=== PATIENT | female | born 1990 | race Caucasian/White ===

== ENCOUNTER → 2016-10-05 | Outpatient (CLI) | payer OTHER ==
[2016-10-05 08:11] LABS: Basophils % (A) 1 %; CH 28.1; Eosinophils # (A) 0.1 k/uL (0-0.7); Eosinophils % (A) 2 %; HCT 43.2 % (34.0-46.0); HDW 2.68; Luc # (Auto) 0.13; Luc % (Auto) 2; Lymphocytes # (A) 1.9 k/uL (1.0-4.8); Lymphocytes % (A) 27 %; MCH 28.8 pg (25.0-35.0); MCHC 34.8 g/dL (31.0-37.0); MCV 82.9 fL (80.0-100.0); Mean Platelet Volume 7.9; Monocytes # (A) 0.3 k/uL (0-1.0); Monocytes % (A) 5 %; Neutrophils # (A) 4.4 k/uL (1.3-7.7); Neutrophils % (A) 64 %; RBC 5.21 m/uL (3.80-5.40); RDW 12.2 % (11.5-15.5); WBC 6.9 k/uL (3.8-10.6); WBC (Perox) 7.17
== END | disposition home or self-care (01) ==
LOC: LABWHC1 07:26
PROVIDERS: ATTEND Nurse Practitioner Family
DX: R39.15 Urgency of urination (principal); R53.83 Other fatigue
CPT/HCPCS: 36415; 82947; 84439; 84443; 85025; 86376; 86800

== ENCOUNTER → 2016-12-27 | Outpatient (CLI) | payer BC ==
--- NOTE | 2016-12-27 19:05 | XR ---
EXAMINATION TYPE: XR lumbar spine 2 or 3V DATE OF EXAM: 12/27/2016 COMPARISON: NONE HISTORY: Pain TECHNIQUE: 3 views FINDINGS: Lumbar vertebra have fairly normal spacing and alignment. Posterior elements are intact. Sa croiliac joints appear normal. IMPRESSION: Negative lumbar spine exam.
== END | disposition home or self-care (01) ==
LOC: RADXRMAIN 18:20
PROVIDERS: ATTEND Surgery
DX: M54.40 Lumbago with sciatica, unspecified side (principal)
CPT/HCPCS: 72100

== ENCOUNTER 2016-12-30 17:03 | Emergency (ER) | payer BC ==
[2016-12-30] MEDS ORDERED: KETOROLAC 30 MG/ML 1 ML VIAL IVP STA (17:57)
[2016-12-30] MEDS ORDERED: KETOROLAC 30 MG/ML 1 ML VIAL IM STA (18:06)
--- NOTE | 2016-12-30 18:16 | ED ---
Back Pain HPI - General Chief Complaint: Back Pain/Injury Stated Complaint: Back Pain Time Seen by Provider: 12/30/16 17:35 Source: patient, RN notes reviewed Mode of arrival: ambulatory Limitations: no limitations - History of Present Illness Initial Comments: This is a 26-year-old female who presents to emergency department with chief complaint of low back pain. Patient states that she has had lumbar back pain since last Monday. She was cleaning the house and folding laundry when she began to have pain. She thought that at the time she pulled a muscle because she has done so multiple times in the past. 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 Patient continues to have sharp shooting pain along both sides of the spine, more so on the right than the left. Patient denies any urinary symptoms including dysuria, frequency, or hematuria. She reports that she's been taking ibuprofen daily but that it has not helped. She states pain is worse when standing for long periods of time or going from a lying to a sitting position. She states the only thing that has slightly improved the pain is using a heating pad.she denies any specific injury or trauma. She denies saddle paresthesias or loss of bladder or bowel function. She denies IV drug use. Denies fever, chills, chest pain, shortness of breath, abdominal pain, nausea or vomiting, constipation or diarrhea, dysuria or hematuria, numbness or tingling, headache or vision changes. - Related Data Home Medications Medication Instructions Recorded Confirmed Acetaminophen Tab [Tylenol Tab] 650 mg PO Q6H PRN 12/30/16 12/30/16 Ibuprofen [Advil] 400 mg PO Q8HR PRN 12/30/16 12/30/16 Sertraline [Zoloft] 100 mg PO DAILY 12/30/16 12/30/16 Previous Rx's Medication Instructions Recorded Cyclobenzaprine [Flexeril] 10 mg PO TID #21 tab 12/30/16 Sulfamethox-Tmp 800-160Mg [Bactrim 1 tab PO Q12HR #20 tab 12/30/16 DS 800-160 mg] Allergies Allergy/AdvReac Type Severity Reaction Status Date / Time No Known Allergies Allergy Verified 12/30/16 18:01 Review of Systems ROS Statement: Those systems with pertinent positive or pertinent negative responses have been documented in the HPI. ROS Other: All systems not noted in ROS Statement are negative. Past Medical History Past Medical History: GERD/Reflux Additional Past Medical History / Comment(s): hx migraines, hiatal hernia, lap ramsey fundoplication History of Any Multi-Drug Resistant Organisms: None Reported Past Surgical History: Cholecystectomy Additional Past Surgical History / Comment(s): COLONOSCOPY and EGD, lap. anayeli in 2014, 02-20-15 lap ramsey fundoplication Past Anesthesia/Blood Transfusion Reactions: No Reported Reaction Past Psychological History: No Psychological Hx Reported Smoking Status: Never smoker Past Alcohol Use History: None Reported Past Drug Use History: None Reported - Past Family History Mother Family Medical History: No Reported History General Exam - General Exam Comments Initial Comments: General: Awake and alert, well-developed; in no apparent distress. Tearful when going from lying to sitting position and during physical examination. HEENT: Head atraumatic, normocephalic. Pupils are equal, round and reactive to light. Extraocular movements intact. Oropharynx moist without erythema or exudate. Neck: Supple. Normal ROM. No tenderness. Back: Right and left paraspinal muscle tenderness with palpation. No bony point vertebral tenderness. Right CVA tenderness noted. No SI joint tenderness. Sensation is intact. No obvious deformities, swelling or erythema. Cardiovascular: Regular rate and rhythm. No murmurs, rubs or gallops. Chest symmetrical. Respiratory: Lungs clear to auscultation bilaterally. No wheezes, rales or rhonchi. Normal respiratory effort with no use of accessory muscles. Abdomen: Soft, non-tender, non-distended. No rigidity, rebound or guarding. Normal bowel sounds in all 4 quadrants. Musculoskeletal: Normal active and passive ROM of back. Able to rotate and flex without difficulty. Pedal pulses 2+ equal and palpable bilaterally. Skin: [place], warm and dry without rashes or lesions. Neurological: Alert and oriented x3. CN II-XII grossly intact. Speech is fluent and answers are appropriate. No focal neuro deficits. Psychiatric: Normal mood and affect. No overt signs of depression or anxiety noted. Limitations: no limitations Course Vital Signs 12/30/16 17:12 Temperature 97.5 F L Pulse Rate 89 Respiratory 22 Rate Blood Pressure 113/78 O2 Sat by Pulse 97 Oximetry Medical Decision Making - Medical Decision Making this is a 26-year-old female who presents to the emergency department chief complaint of low back pain. She denies saddle paresthesias or loss of bladder or bowel function. She denies any specific injury or trauma. This case was discussed with attending physician, Dr. Soriano, who also evaluated the patient. Patient has right and left-sided paraspinal tenderness as well as some right CVA tenderness. Urine sample was collected which revealed a urinary tract infection. No evidence of hematuria. Patient will be treated for this. Back pain appears to be musculoskeletal in nature. Patient will be given muscle relaxers. 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 Instructed patient to take both NSAID and muscle relaxer. She is in agreement to the plan and voices understanding. All questions were answered. - Lab Data Lab Results 12/30/16 12/30/16 Range/Units 18:00 18:00 Urine Color Light Yellow Urine Appearance Cloudy H (Clear) Urine pH 6.5 (5.0-8.0) Ur Specific [place] 1.008 (1.001-1.035) Urine Protein Negative (Negative) Urine Glucose (UA) Negative (Negative) Urine Ketones Negative (Negative) Urine Blood Negative (Negative) Urine Nitrite Negative (Negative) Urine Bilirubin Negative (Negative) Urine Urobilinogen <2.0 (<2.0) mg/dL Ur Leukocyte Esterase Large H (Negative) Urine RBC 4 (0-5) /hpf Urine WBC 68 H (0-5) /hpf Ur Squamous Epith Cells 12 H (0-4) /hpf Amorphous Sediment Rare H (None) /hpf Urine HCG, Qual Not Detected (Not Detectd) Disposition Clinical Impression: Strain of lumbar region, Urinary tract infection Disposition: HOME SELF-CARE Condition: Good Instructions: Low Back Strain (ED), Urinary Tract Infection in Women (ED) Additional Instructions: Please take medications as prescribed. Please follow up with primary care provider within 1-2 days. Return to emergency department if symptoms should worsen or any concerns arise. Prescriptions: Cyclobenzaprine [Flexeril] 10 mg PO TID #21 tab Sulfamethox-Tmp 800-160Mg [Bactrim DS 800-160 mg] 1 tab PO Q12HR #20 tab Referrals: Jaqueline Barnard III, MD [Primary Care Provider] - 1-2 days Time of Disposition: 18:48
[2016-12-30 18:21] LABS: Amorphous Sediment,Urine Rare /hpf; Appearance,Urine Cloudy (Clear); Bilirubin,Urine Negative (Negative); Glucose,Urine (UA) Negative (Negative); Ketones,Urine Negative (Negative); Leukocyte Esterase,Urine Large (Negative); Nitrite,Urine Negative (Negative); PH, Urine 6.5 (5.0-8.0); Particle Count 3290; Protein,Urine Negative (Negative); RBC,Urine 4 /hpf (0-5); Specific Gravity,Urine 1.008 (1.001-1.035); Squamous Epithelial Cell,Urine 12 /hpf (0-4); UA Billing (MACRO vs. MICRO) MICRO; Urobilinogen,Urine <2.0 mg/dL (<2.0); WBC,Urine 68 /hpf (0-5)
[2016-12-30 19:05] VITALS: BP 120/65; PULSE 80; RESP 16; TEMP 98.2
== END 2016-12-30 19:00 | disposition home or self-care (01) ==
LOC: EC 17:03
DX: S39.012D Strain of muscle, fascia and tendon of lower back, subsequent encounter (principal); N39.0 Urinary tract infection, site not specified; Z79.899 Other long term (current) drug therapy; X50.0XXD Overexertion from strenuous movement or load, subsequent encounter
CPT/HCPCS: 81001; 81025; 87086; 99283; 96372; J1885

== ENCOUNTER → 2017-03-02 | Outpatient (CLI) | payer BC ==
--- NOTE | 2017-03-02 12:06 | PN ---
PROGRESS NOTE FOLLOW-UP VISIT DATE OF SERVICE: 03/02/2017 This 26-year-old lady had been followed in sleep center to discuss results of the sleep studies and following plan I discussed results of sleep study with patient in details. Polysomnogram did not show any significant respiratory abnormalities. Apnea-hypopnea index was only 1.2. Oxygen level in normal range. Sleep efficiency was normal 85.6%. No shortening of REM. Latency, it is 136 minutes. Normal sleep architecture with normal amount of stage N1, delta sleep and REM sleep. Three periods of REM have been documented. On the following day, patient had multiple sleep latency test and mean sleep latency was 15.4 minutes, which is in normal range. No sleep onset REM periods have been documented. Test included 5 naps trials. Polysomnogram showed 215 periodic limb movements, which was 33.2 per hour with 4.6 microarousals per hour. The patient continued to feel tiredness and sleepiness. [place] Sleepiness Scale is 19. She is on several SSRI medications at the present time. MEDICATIONS: Sertraline, Wellbutrin, , . PHYSICAL EXAM: During physical exam, patient in no distress. VITAL SIGNS: BP 127/74, HR 74, RR 16, oxygen saturation room air 99%. Height 5 feet 7 inches, weight 210, BMI 32.8. HEENT: PERRLA, EOMI. Moderately low position of soft palate. NECK: Supple, no JVD. Thyroid is not palpable. LUNGS: Clear to percussion and to auscultation. Good air exchange. No wheezing or rhonchi. HEART: S1, S2 regular. No murmurs, gallops, or rubs. ABDOMEN: Slightly obese. EXTREMITIES: No clubbing or cyanosis. 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 Cranial nerves 2 to 7 intact. There is no fasciculation or atrophy. noted. No focal deficits observed. IMPRESSION: 1. No significant respiratory abnormalities during the sleep study. No clear indication of snoring. 2. Multiple sleep latency test is normal, did not indicate sleepiness during the day. No sleep onset REM periods. No indication of hypersomnia. 3. The patient continued to have symptoms of tiredness during the day, possibly related to medications or depression. 4. Mild to moderate periodic limb movements have been documented during the sleep study. 5. Status post Harris fundoplication. 6. History of hiatal hernia. PLAN: 1. Lets check iron profile including ferritin level, low level of iron could be related to development of periodic limb movements. 2. SSRIs may increase risk for periodic limb movements. 3. I will try the patient on minimal dose of Mirapex 0.125 mg at bedtime to see if it will improve her sleep and feeling during the day with a goal to decrease amount of periodic limb movements. 4. Losing weight. 5. Sleep hygiene with regular time in bed for 7-1/2 hours. 6. No driving if feeling sleepiness. 7. Extreme precautions to driving. Thank you very much for allowing me to participate in management of your patient. Sincerely, Nick Lorenzo MD, PhD, FAASM Diplomat of [place] [employer] [place] [employer] Trouble Shooting Mechanic of [facility] [place] MMODL / TESSIEN: [id number] /
== END | disposition home or self-care (01) ==
LOC: SLEEP 10:07
PROVIDERS: ATTEND Internal Medicine
DX: G47.61 Periodic limb movement disorder (principal); K44.9 Diaphragmatic hernia without obstruction or gangrene; Z98.890 Other specified postprocedural states; Z87.19 Personal history of other diseases of the digestive system

== ENCOUNTER → 2017-03-27 | Outpatient (CLI) | payer BC | END | disposition home or self-care (01) | LOC: LABWHC1 11:12 | PROVIDERS: ATTEND Obstetrics & Gynecology | DX: Z32.00 Encounter for pregnancy test, result unknown (principal) | CPT/HCPCS: 36415; 84702 ==

== ENCOUNTER → 2017-04-06 | Outpatient (CLI) | payer BC | END | disposition home or self-care (01) | LOC: LABWHC1 07:24 | PROVIDERS: ATTEND Obstetrics & Gynecology | DX: Z32.00 Encounter for pregnancy test, result unknown (principal) | CPT/HCPCS: 36415; 84702 ==

== ENCOUNTER → 2017-05-03 | Outpatient (CLI) | payer BC ==
--- NOTE | 2017-05-03 09:11 | FL ---
ESOPHOGRAM. HISTORY: Dysphagia and pain. Prior Real fundoplication. Esophagram was performed per the air contrast technique. The patient swallowed barium and effervesce nt crystals without difficulty or delay. Esophageal peristalsis and motility appear to be within normal limits. There is no evidence for filling defect, mass or diverticulum. No recurrent hiatal hernia seen. Subsequently single contrast cervical esophagram was performed which fails demonstrate evidence for a spiration penetration or mass. IMPRESSION: Unremarkable study.
== END | disposition home or self-care (01) ==
LOC: RADFLMAIN 08:02
PROVIDERS: ATTEND Surgery
DX: K21.9 Gastro-esophageal reflux disease without esophagitis (principal)
CPT/HCPCS: 74220

== ENCOUNTER → 2017-05-16 | Outpatient (CLI) | payer BC | END | disposition home or self-care (01) | LOC: LABWHC1 07:17 | PROVIDERS: ATTEND Obstetrics & Gynecology | DX: N92.6 Irregular menstruation, unspecified (principal) | CPT/HCPCS: 36415; 84702 ==

== ENCOUNTER → 2017-07-27 | Outpatient (CLI) | payer BC ==
--- NOTE | 2017-07-27 16:00 | FL ---
EXAMINATION TYPE: FL hysterosalpingography DATE OF EXAM: 07/27/2017 HISTORY: Secondary infertility TECHNIQUE: 11 fluoroscopic images were saved and 22 seconds of fluoroscopy time was utilized. Informed consent was obtained and all the patient's questions were answered. Pulmonary film of the p sunshine reveals no distinct abnormality. A speculum was introduced and the external cervical os was lo calize. The external cervical os was cleansed and a Betadine solution on 3 occasions. Hysterosalpin gography catheter was introduced into the uterus and balloon insufflation device deployed. Approxima tely 5 cc of nonionic contrast was injected in a retrograde manner. The uterus has a normal size shape and appearance. No persistent uterine filling defects are seen. Both fallopian tubes fill with contrast normally. There is spill of contrast into the peritoneal cav ity bilaterally left greater than right. IMPRESSION: Normal hysterosalpingogram with bilateral spill of contrast into the peritoneal cavity in dicating patency.
== END | disposition home or self-care (01) ==
LOC: RADFLMAIN 13:28
PROVIDERS: ATTEND Obstetrics & Gynecology Reproductive Endocrinology
DX: N80.0 Endometriosis of uterus (principal)
CPT/HCPCS: 58340; 74740; Q9967

== ENCOUNTER → 2018-01-15 | Outpatient (CLI) | payer BC ==
--- NOTE | 2018-01-15 16:53 | BD ---
EXAMINATION TYPE: Axial Bone Density DATE OF EXAM: 01/15/2018 COMPARISON: NONE CLINICAL HISTORY: family hx osteoporosis : no Height: 5'7 Weight: 220 FRAX RISK QUESTIONS: Secondary Osteoporosis: RISK FACTORS HISTORY OF: Family History of Osteoporosis: y Active: n Diet low in dairy products/other sources of calcium: y If Premenopausal, do you have irregular periods: y MEDICATIONS: Additional Medications: depression Additional History: EXAM MEASUREMENTS: Bone mineral densitometry was performed using the [employer] System. Bone mineral density as measured about the Lumbar spine is: ----- L1-L4(G/cm2): 1.104 T Score Values are as follows: ----- L2: -0.6 ----- L3: -0.4 ----- L4: -1.6 ----- L1-L4: -0.6 Bone mineral density about the R hip (g/cm2): 0.907 Bone mineral density about the L hip (g/cm2): 0.965 T Score values are as follows: -----R Neck: -0.9 -----L Neck: -0.5 -----R Total: -0.8 -----L Total: -0.5 IMPRESSION: Normal (Values between +1 and -1 indicate normal bone mass). Consider repeating this study in 5 year s or sooner if there is some new clinical indication. NOTE: T-SCORE=SD OF THE YOUNG ADULT MEAN.
== END ==
LOC: RADBDWWP 11:17
PROVIDERS: ATTEND Family Medicine
DX: Z13.820 Encounter for screening for osteoporosis (principal); Z82.62 Family history of osteoporosis
CPT/HCPCS: 77080

== ENCOUNTER 2018-03-14 08:14 | Emergency (ER) | payer BC ==
[2018-03-14 08:38] VITALS: RESP 18
--- NOTE | 2018-03-14 09:06 | ED ---
Fall HPI - General Chief Complaint: Fall Stated Complaint: BACK PAIN Time Seen by Provider: 03/14/18 08:21 Source: patient, EMS, RN notes reviewed, old records reviewed Mode of arrival: EMS - History of Present Illness Initial Comments: Patient is a 27-year-old female who presents emergency room today with complaints of slipping follow-up in the steps. Patient states that she fell landing on her mid back and complains of losing her breath shortly after she fell. Patient states that she was able to breathe better. She arrived via EMS. Patient states that she is tender over her thoracic spine and over her left ribs. - Related Data Home Medications Medication Instructions Recorded Confirmed FLUoxetine HCL [PROzac] 20 mg PO DAILY 03/14/18 03/14/18 Previous Rx's Medication Instructions Recorded Cyclobenzaprine [Flexeril] 10 mg PO TID #12 tab 03/14/18 Ibuprofen 600 mg PO TID #20 tablet 03/14/18 Nitrofurantoin Monohyd/M-Cryst 100 mg PO Q12HR #14 cap 03/14/18 [Macrobid] Allergies Allergy/AdvReac Type Severity Reaction Status Date / Time No Known Allergies Allergy Verified 03/14/18 08:24 Review of Systems ROS Statement: Those systems with pertinent positive or pertinent negative responses have been documented in the HPI. ROS Other: All systems not noted in ROS Statement are negative. Past Medical History Past Medical History: GERD/Reflux Additional Past Medical History / Comment(s): hx migraines, hiatal hernia, 1-15- 16 lap ramsey fundoplication History of Any Multi-Drug Resistant Organisms: None Reported Past Surgical History: Cholecystectomy Additional Past Surgical History / Comment(s): COLONOSCOPY and EGD, lap. anayeli in 2014, 15-16 lap ramsey fundoplication Past Anesthesia/Blood Transfusion Reactions: No Reported Reaction Past Psychological History: No Psychological Hx Reported Smoking Status: Never smoker Past Alcohol Use History: None Reported Past Drug Use History: None Reported - Past Family History Mother Family Medical History: No Reported History General Exam - General Exam Comments Initial Comments: 27-year-old female. Alert and oriented 3. Patient appears in no distress. Limitations: no limitations General appearance: alert, in no apparent distress Head exam: Present: atraumatic, normocephalic, normal inspection Eye exam: Present: normal appearance, PERRL, EOMI. Absent: scleral icterus, conjunctival injection, periorbital swelling ENT exam: Present: normal exam, mucous membranes moist Neck exam: Present: normal inspection. Absent: tenderness, meningismus, lymphadenopathy Respiratory exam: Present: normal lung sounds bilaterally, other ( is tender to palpation over the left ribs.). Absent: respiratory distress, wheezes , rales, rhonchi, stridor Cardiovascular Exam: Present: regular rate, normal rhythm, normal heart sounds. Absent: systolic murmur, diastolic murmur, rubs, gallop, clicks GI/Abdominal exam: Present: soft Extremities exam: Present: normal inspection, full ROM, normal capillary refill. Absent: tenderness, pedal edema, joint swelling, calf tenderness Back exam: Present: normal inspection Neurological exam: Present: alert, oriented X3, CN II-XII intact Psychiatric exam: Present: normal affect, normal mood Course Vital Signs 03/14/18 08:36 Temperature 98.9 F Pulse Rate 68 Respiratory 18 Rate Blood Pressure 138/85 O2 Sat by Pulse 95 Oximetry Medical Decision Making - Medical Decision Making Patient is a 27-year-old female presents for service today with complaints of left-sided rib pain and lower back pain after she slipped and fell on the stairs. Patient's urinalysis is negative for age she G levels. UA shows signs of infection. Culture obtained. Patient chest x-ray was reviewed and negative for any acute process. No evidence of rib fractures or pneumothorax. Lumbar spine x-ray was completednegative for any acute process. She was given pain medication and template internal medicine. She does report some relief at this time. Patient will be discharged with a short course of Ancef intravenous and a pain medicine. Also discharged antibiotics for UTI. Discussed strict return parameters and close follow-up with PCP. - Lab Data Lab Results 03/14/18 03/14/18 Range/Units 09:15 09:15 Urine Color Yellow Urine Appearance Cloudy H (Clear) Urine pH 7.0 (5.0-8.0) Ur Specific [place] 1.018 (1.001-1.035) Urine Protein 1+ H (Negative) Urine Glucose (UA) Negative (Negative) Urine Ketones Negative (Negative) Urine Blood Negative (Negative) Urine Nitrite Negative (Negative) Urine Bilirubin Negative (Negative) Urine Urobilinogen <2.0 (<2.0) mg/dL Ur Leukocyte Esterase Large H (Negative) Urine RBC 9 H (0-5) /hpf Urine WBC 44 H (0-5) /hpf Ur Squamous Epith Cells 24 H (0-4) /hpf Urine Mucus Few H (None) /hpf Urine HCG, Qual Not Detected (Not Detectd) - Radiology Data Radiology results: report reviewed Normal chest x-ray. Normal lumbar spine x-ray. Disposition Clinical Impression: Fall, Rib pain on left side, Back pain, UTI (urinary tract infection) Disposition: HOME SELF-CARE Condition: Good Instructions (If sedation given, give patient instructions): Acute Low Back Pain (ED), Rib Contusion (ED) Additional Instructions: Patient advised close follow-up with primary care physician. Patient to take anti-inflammatory medicine and muscle relaxers as prescribed. Take antibiotic for UTI. Return to emergency department if any alarming signs or symptoms occur. Prescriptions: Cyclobenzaprine [Flexeril] 10 mg PO TID #12 tab Ibuprofen 600 mg PO TID #20 tablet Nitrofurantoin Monohyd/M-Cryst [Macrobid] 100 mg PO Q12HR #14 cap Is patient prescribed a controlled substance at d/c from ED?: No Referrals: Jaqueline Barnard III, MD [Primary Care Provider] - 1-2 days Time of Disposition: 10:46
[2018-03-14] MEDS ORDERED: HYDROcodone/APAP 5-325MG 1 EACH TAB PO STA (09:07)
[2018-03-14] MEDS ORDERED: KETOROLAC 30 MG/ML 1 ML VIAL IVP STA (09:07)
[2018-03-14] MEDS ORDERED: CYCLOBENZAPRINE 10MG STARTER 3 TAB BTL PO STA (09:07)
[2018-03-14 09:45] LABS: Appearance,Urine Cloudy (Clear); Bilirubin,Urine Negative (Negative); Blood,Urine Negative (Negative); Color,Urine Yellow; Glucose,Urine (UA) Negative (Negative); Ketones,Urine Negative (Negative); Leukocyte Esterase,Urine Large (Negative); Mucus,Urine Few /hpf; Nitrite,Urine Negative (Negative); Protein,Urine 1+ (Negative); RBC,Urine 9 /hpf (0-5); Specific Gravity,Urine 1.018 (1.001-1.035); Squamous Epithelial Cell,Urine 24 /hpf (0-4); Urobilinogen,Urine <2.0 mg/dL (<2.0); WBC,Urine 44 /hpf (0-5)
--- NOTE | 2018-03-14 10:22 | XR ---
EXAMINATION TYPE: XR chest 2V DATE OF EXAM: 03/14/2018 COMPARISON: 01/18/2016 HISTORY: Chest pain TECHNIQUE: Frontal and lateral views of the chest are obtained. FINDINGS: There is no focal air space opacity. No evidence for pneumothorax. No pleural effusion. The cardiac silhouette size is within normal limits. The osseous structures are grossly intact. IMPRESSION: 1. No acute cardiopulmonary process.
--- NOTE | 2018-03-14 10:27 | XR ---
EXAMINATION TYPE: XR lumbar spine 2 or 3V DATE OF EXAM: 03/14/2018 CLINICAL HISTORY: pain TECHNIQUE: Three views of the lumbar spine are submitted. COMPARISON: 12/27/2016 FINDINGS: There are 5 lumbar type vertebral bodies identified. Mild curvature is noted convex to the right. The lumbar spine shows satisfactory alignment without evidence of acute fracture or dislocation. Vertebr al body heights are within normal limits. Disc spaces are within normal limits. The overlying soft tissue appears unremarkable. IMPRESSION: No acute fracture or dislocation is seen in the lumbar spine. ICD 10 NO FRACTURE, INITIAL EVALUATION
[2018-03-14 11:12] VITALS: BP 141/81; PULSE 65; TEMP 97.9
== END 2018-03-14 11:10 | disposition home or self-care (01) ==
LOC: EC 08:14
DX: M54.5 Low back pain (principal); R07.81 Pleurodynia; N39.0 Urinary tract infection, site not specified; Z79.899 Other long term (current) drug therapy; W10.9XXA Fall (on) (from) unspecified stairs and steps, initial encounter
CPT/HCPCS: 99284; 96374; 81001; 81025; 87086; 72100; 71046; J1885

== ENCOUNTER → 2018-07-04 | Outpatient (CLI) | payer BC | END | disposition home or self-care (01) | LOC: LABWHC1 11:25 | PROVIDERS: ATTEND Obstetrics & Gynecology | DX: N92.6 Irregular menstruation, unspecified (principal) | CPT/HCPCS: 36415; 84702 ==

== ENCOUNTER → 2018-09-27 | Outpatient (CLI) | payer BC ==
[2018-09-27 18:07] LABS: Amorphous Sediment,Urine Rare /hpf; Appearance,Urine Cloudy (Clear); Bilirubin,Urine Negative (Negative); Blood,Urine Small (Negative); Color,Urine Yellow; Glucose,Urine (UA) Negative (Negative); Ketones,Urine Negative (Negative); Leukocyte Esterase,Urine Large (Negative); Mucus,Urine Moderate /hpf; Nitrite,Urine Negative (Negative); PH, Urine 5.5 (5.0-8.0); Protein,Urine 1+ (Negative); RBC,Urine 2 /hpf (0-5); Specific Gravity,Urine 1.035 (1.001-1.035); Squamous Epithelial Cell,Urine 18 /hpf (0-4); Urobilinogen,Urine <2.0 mg/dL (<2.0); WBC,Urine 94 /hpf (0-5)
== END | disposition home or self-care (01) ==
LOC: LABWHC1 17:10
PROVIDERS: ATTEND Surgery
DX: R39.15 Urgency of urination (principal)
CPT/HCPCS: 81001; 87086

== ENCOUNTER → 2019-04-16 | Outpatient (CLI) | payer BC ==
[2019-04-16 19:38] LABS: Basophils % (A) 1 %; Eosinophils # (A) 0.1 k/uL (0-0.7); Eosinophils % (A) 2 %; HCT 43.1 % (34.0-46.0); HGB 14.2 gm/dL (11.4-16.0); Lymphocytes # (A) 2.4 k/uL (1.0-4.8); Lymphocytes % (A) 31 %; MCH 27.8 pg (25.0-35.0); MCV 84.4 fL (80.0-100.0); Mean Platelet Volume 9.7; Monocytes # (A) 0.4 k/uL (0-1.0); Monocytes % (A) 5 %; Neutrophils # (A) 4.8 k/uL (1.3-7.7); Neutrophils % (A) 61 %; Platelet Count 248 k/uL (150-450); RBC 5.11 m/uL (3.80-5.40); RDW 12.5 % (11.5-15.5); WBC 7.9 k/uL (3.8-10.6)
[2019-04-17 00:15] LABS: Ferritin 30.3 ng/mL (10.0-291.0)
[2019-04-17 00:44] LABS: % Iron Saturation 7.89 (12.00-45.00); ALT 277 U/L (8-44); AST 103 U/L (13-35); African American GFR (CKD) 136.7 (60.0-200.0); Albumin/Globulin Ratio 1.68 (1.60-3.17); Alkaline Phosphatase 76 U/L (41-126); BUN/Creat Ratio 14.29 Ratio (12.00-20.00); Calcium 9.3 mg/dL (8.7-10.3); Carbon Dioxide 24.5 mmol/L (21.6-31.8); Chloride 103 mmol/L (96-109); Globulin 2.5 g/dL (1.6-3.3); Glucose 117 mg/dL (70-110); HCG,Quantitative Serum <2.0 mIU/mL; Iron 37 ug/dL (50-170); Non-African American GFR(CKD) 117.9 (60.0-200.0); Potassium 4.4 mmol/L (3.5-5.5); Sodium 138 mmol/L (135-145); Total Bilirubin 0.4 mg/dL (0.2-1.2); Total Iron Binding Capacity 469 ug/dL (228-460); Total Protein 6.7 g/dL (6.2-8.2)
== END | disposition home or self-care (01) ==
LOC: LABWHC1 17:16
PROVIDERS: ATTEND Nurse Practitioner Family
DX: R42 Dizziness and giddiness (principal); G44.009 Cluster headache syndrome, unspecified, not intractable
CPT/HCPCS: 36415; 80053; 82728; 83540; 83550; 84443; 84702; 85025

== ENCOUNTER → 2019-04-25 | Outpatient (CLI) | payer BC ==
--- NOTE | 2019-04-25 07:34 | US ---
EXAMINATION TYPE: US liver DATE OF EXAM: 04/25/2019 COMPARISON: CT 2016 CLINICAL HISTORY: R74.0 nonspecific elevation of levels of transamin. High ALT levels. ? high blood p ressure, headaches. EXAM MEASUREMENTS: Liver Length: 16.1 cm Gallbladder Wall: Surgically absent cm CBD: 0.4 cm Right Kidney: 11.8 x 5.9 x 3.4 cm Pancreas: wnl Liver: Partially obscured by bowel gas. hypoechoic area near GB fossa. ? focal sparing vs mass = 1.9 x 1.8 x 1.4 cm Gallbladder: Surgically absent Evidence for sonographic Howe's sign: No CBD: wnl Right Kidney: wnl Visualized pancreas is within normal limits. Visualized liver is heterogeneous without ductal dilatat ion. Evaluation for focal masses is suboptimal. Technologist quinn 1.8 cm hypoechoic area deep near g allbladder fossa favoring focal fatty sparing due to location. No surrounding ascites. Gallbladder no danny surgically absent. Limited images right kidney show no gross hydronephrosis. IMPRESSION: Heterogeneous appearance of liver could reflect mild diffuse fatty infiltration or less l ikely underlying hepatocellular disease. Patient may benefit with imaging guided random biopsy or ult rasound elastography to further evaluate.
== END | disposition home or self-care (01) ==
LOC: RADUSWWP 06:51
PROVIDERS: ATTEND Internal Medicine Gastroenterology
DX: R74.0 Nonspecific elevation of levels of transaminase and lactic acid dehydrogenase [LDH] (principal)
CPT/HCPCS: 76705

== ENCOUNTER 2019-05-28 11:40 | Emergency (ER) | payer BC ==
[2019-05-28 11:49] VITALS: RESP 18; TEMP 98.1
--- NOTE | 2019-05-28 12:13 | ED ---
General Adult HPI - General Chief complaint: Upper Respiratory Infection Stated complaint: SOB Time Seen by Provider: 05/28/19 11:53 Source: patient Mode of arrival: ambulatory Limitations: no limitations - History of Present Illness Initial comments: 28yo female with PMH of HTN and obesity, who presents today for cc of shortness of breath x 2 weeks. Patient states that she has had shortness of breath x 2 weeks. upon further history taking patient denies any associated symptoms, such as cough, fevers, congestion. Denies hemoptysis, leg swelling, calf pain, abdominal pain, chest pain/pressure, pain with deep inspiration. Patient denies history of DVT/PE. Patient denies recent surgeries or travel. Patient denies immobilization. 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 She states she was told to come here for Covid-19 testing since she is actively working with patients. Patient denies any other c omplaints. Upon arrival patient appears in no acute respiratory distress, normal RR, oxygenating well on RA. Patient HR WNL. - Related Data Home Medications Medication Instructions Recorded Confirmed FLUoxetine HCL [PROzac] 20 mg PO DAILY 03/14/18 03/14/18 Previous Rx's Medication Instructions Recorded Cyclobenzaprine [Flexeril] 10 mg PO TID #12 tab 03/14/18 Ibuprofen 600 mg PO TID #20 tablet 03/14/18 Nitrofurantoin Monohyd/M-Cryst 100 mg PO Q12HR #14 cap 03/14/18 [Macrobid] Allergies Allergy/AdvReac Type Severity Reaction Status Date / Time No Known Allergies Allergy Verified 05/28/19 11:49 Review of Systems ROS Statement: Those systems with pertinent positive or pertinent negative responses have been documented in the HPI. ROS Other: All systems not noted in ROS Statement are negative. Past Medical History Past Medical History: GERD/Reflux Additional Past Medical History / Comment(s): hx migraines, hiatal hernia, 1-16 lap ramsey fundoplication History of Any Multi-Drug Resistant Organisms: None Reported Past Surgical History: Cholecystectomy Additional Past Surgical History / Comment(s): COLONOSCOPY and EGD, lap. anayeli in 2014, 02-20-15 lap ramsey fundoplication Past Anesthesia/Blood Transfusion Reactions: No Reported Reaction Past Psychological History: No Psychological Hx Reported Smoking Status: Never smoker Past Alcohol Use History: None Reported Past Drug Use History: None Reported - Past Family History Mother Family Medical History: No Reported History General Exam - General Exam Comments Initial Comments: General: The patient is awake and alert, in no distress, and does not appear a cutely ill. Eye: +3 mm pupils are equal, round and reactive to light, extra-ocular movements are intact. No nystagmus. There is normal conjunctiva bilaterally. No signs of icterus. No photophobia Ears, nose, mouth and throat: There are moist mucous membranes and no external oral lesions. Neck: The neck is supple, there is no tenderness or JVD. Cardiovascular: There is a regular rate and rhythm. No murmur, rub or gallop is appreciated. Respiratory: Lungs are clear to auscultation, respirations are non-labored, breath sounds are equal. No wheezes, stridor, rales, or rhonchi. No retractions or abdominal breathing. Gastrointestinal: Soft, non-distended, non-tender abdomen without masses or organomegaly noted. There is no rebound or guarding present. Bowel sounds are unremarkable. Musculoskeletal: Normal ROM, no tenderness. Strength 5/5. Sensation intact. Radial pulses equal bilaterally 2+. Neurological: A&O x 3. CN II-XII intact grossly, There are no obvious motor or sensory deficits. Coordination appears grossly intact. Speech appears normal, no muffling. Skin: Skin is warm and dry and no rashes or lesions are noted. No extremity edema. No calf swelling or pain to palpation of the lower legs b/l. Psychiatric: Cooperative Limitations: no limitations Course Vital Signs 05/28/19 05/28/19 05/28/19 11:45 12:50 14:00 Temperature 98.1 F Pulse Rate 82 86 86 Respiratory 18 18 18 Rate Blood Pressure 124/85 142/93 131/74 O2 Sat by Pulse 99 99 99 Oximetry EKG Findings - EKG Comments: EKG Findings:: Ventricular rate 77 bpm, KY interval 120 ms, QR confucianism 92 ms, QT/QTC 388/439 ms. This is normal sinus. There is no ST elevation or depression. Nonspecific to me that reality No acute process idenitified. Medical Decision Making - Medical Decision Making CXR clear. No acute EKG findings. Troponin (-). No CP. Patient dimer slightly elevated , CTA (-) for pulmary embolism. Incidental findings discussed. Patient Covid testing (-). VS stable. She will be discharged at this time with PCP f/u. Patient does not appears in respiratory distress and is agreeable to this care plan and discharge at this time. patient spoke [facility] employer who recommended 1 week of incase of possible false negative covid testing. Case discussed with Dr. Guevara patient was discharged appearing well. - Lab Data Result diagrams: 05/28/19 12:46 05/28/19 12:46 Lab Results 05/28/19 05/28/19 05/28/19 Range/Units 12:46 12:46 12:46 WBC 9.6 (3.8-10.6) k/uL RBC 5.27 (3.80-5.40) m/uL Hgb 14.6 (11.4-16.0) gm/dL Hct 43.7 (34.0-46.0) % MCV 82.8 (80.0-100.0) fL MCH 27.7 (25.0-35.0) pg MCHC 33.5 (31.0-37.0) g/dL RDW 12.4 (11.5-15.5) % Plt Count 281 (150-450) k/uL Neutrophils % 66 % Lymphocytes % 27 % Monocytes % 4 % Eosinophils % 1 % Basophils % 1 % Neutrophils # 6.4 (1.3-7.7) k/uL Lymphocytes # 2.6 (1.0-4.8) k/uL Monocytes # 0.4 (0-1.0) k/uL Eosinophils # 0.1 (0-0.7) k/uL Basophils # 0.0 (0-0.2) k/uL D-Dimer 0.66 H (<0.60) mg/L FEU Sodium (137-145) mmol/L Potassium (3.5-5.1) mmol/L Chloride (98-107) mmol/L Carbon Dioxide (22-30) mmol/L Anion Gap mmol/L BUN (7-17) mg/dL Creatinine (0.52-1.04) mg/dL Est GFR (CKD-EPI)AfAm (>60 ml/min/1.73 sqM) Est GFR (CKD-EPI)NonAf (>60 ml/min/1.73 sqM) Glucose (74-99) mg/dL Calcium (8.4-10.2) mg/dL Total Bilirubin (0.2-1.3) mg/dL AST (14-36) U/L ALT (4-34) U/L Alkaline Phosphatase (38-126) U/L Troponin I (0.000-0.034) ng/mL Total Protein (6.3-8.2) g/dL Albumin (3.5-5.0) g/dL Coronavirus (PCR) Not Detected (Not Detectd) 05/28/19 05/28/19 Range/Units 12:46 12:46 WBC (3.8-10.6) k/uL RBC (3.80-5.40) m/uL Hgb (11.4-16.0) gm/dL Hct (34.0-46.0) % MCV (80.0-100.0) fL MCH (25.0-35.0) pg MCHC (31.0-37.0) g/dL RDW (11.5-15.5) % Plt Count (150-450) k/uL Neutrophils % % Lymphocytes % % Monocytes % % Eosinophils % % Basophils % % Neutrophils # (1.3-7.7) k/uL Lymphocytes # (1.0-4.8) k/uL Monocytes # (0-1.0) k/uL Eosinophils # (0-0.7) k/uL Basophils # (0-0.2) k/uL D-Dimer (<0.60) mg/L FEU Sodium 137 (137-145) mmol/L Potassium 4.5 (3.5-5.1) mmol/L Chloride 105 (98-107) mmol/L Carbon Dioxide 23 (22-30) mmol/L Anion Gap 9 mmol/L BUN 10 (7-17) mg/dL Creatinine 0.65 (0.52-1.04) mg/dL Est GFR (CKD-EPI)AfAm >90 (>60 ml/min/1.73 sqM) Est GFR (CKD-EPI)NonAf >90 (>60 ml/min/1.73 sqM) Glucose 78 (74-99) mg/dL Calcium 9.3 (8.4-10.2) mg/dL Total Bilirubin 0.4 (0.2-1.3) mg/dL AST 40 H (14-36) U/L ALT 81 H (4-34) U/L Alkaline Phosphatase 70 (38-126) U/L Troponin I <0.012 (0.000-0.034) ng/mL Total Protein 7.5 (6.3-8.2) g/dL Albumin 4.2 (3.5-5.0) g/dL Coronavirus (PCR) (Not Detectd) Disposition Clinical Impression: Liver mass, Pulmonary nodules, Shortness of breath Disposition: HOME SELF-CARE Condition: Good Instructions (If sedation given, give patient instructions): Dyspnea (ED) Additional Instructions: Please use medication as discussed. Please follow-up with family doctor in the next 2 days, recommend GI follow-up for possible liver mass, with further imaging such as MRI within the next 1-2weeks. Please follow-up with your primary care provider for the pulmonary nodules within next 1-2 weeks. Please continue to monitor dyspnea and follow-up with PCP if persistent or worsening please return to the Emergency department. Please return to emergency room if the symptoms increase or worsen or for any other concerns. Is patient prescribed a controlled substance at d/c from ED?: No Referrals: Bety Xavier MD [Primary Care Provider] - 1-2 days Time of Disposition: 14:22
--- NOTE | 2019-05-28 12:28 | XR ---
EXAMINATION TYPE: XR chest 1V DATE OF EXAM: 05/28/2019 COMPARISON: 03/14/2018 HISTORY: Shortness of breath TECHNIQUE: Single frontal view of the chest is obtained. FINDINGS: Low lung volumes slightly exaggerated pulmonary vasculature. There is no focal air space op acity, pleural effusion, or pneumothorax seen. The cardiac silhouette size is within normal limits. The osseous structures are intact. IMPRESSION: No acute cardiopulmonary process.
[2019-05-28 13:03] LABS: Basophils % (A) 1 %; Eosinophils # (A) 0.1 k/uL (0-0.7); Eosinophils % (A) 1 %; HCT 43.7 % (34.0-46.0); HGB 14.6 gm/dL (11.4-16.0); Lymphocytes # (A) 2.6 k/uL (1.0-4.8); Lymphocytes % (A) 27 %; MCH 27.7 pg (25.0-35.0); MCHC 33.5 g/dL (31.0-37.0); MCV 82.8 fL (80.0-100.0); Mean Platelet Volume 8.8; Monocytes # (A) 0.4 k/uL (0-1.0); Monocytes % (A) 4 %; Neutrophils # (A) 6.4 k/uL (1.3-7.7); Neutrophils % (A) 66 %; Platelet Count 281 k/uL (150-450); RBC 5.27 m/uL (3.80-5.40); RDW 12.4 % (11.5-15.5); WBC 9.6 k/uL (3.8-10.6)
[2019-05-28 13:11] LABS: ALT 81 U/L (4-34); AST 40 U/L (14-36); African American GFR (CKD) >90 (>60 ml/min/1.73 sqM); Albumin 4.2 g/dL (3.5-5.0); Alkaline Phosphatase 70 U/L (38-126); Anion Gap 9 mmol/L; Blood Urea Nitrogen 10 mg/dL (7-17); Calcium 9.3 mg/dL (8.4-10.2); Carbon Dioxide 23 mmol/L (22-30); Chloride 105 mmol/L (98-107); Glucose 78 mg/dL (74-99); Non-African American GFR(CKD) >90 (>60 ml/min/1.73 sqM); Potassium 4.5 mmol/L (3.5-5.1); Sodium 137 mmol/L (137-145); Total Bilirubin 0.4 mg/dL (0.2-1.3); Total Protein 7.5 g/dL (6.3-8.2)
--- NOTE | 2019-05-28 14:17 | CT ---
EXAMINATION TYPE: CT chest angio for PE DATE OF EXAM: 05/28/2019 COMPARISON: CT abdomen pelvis dated 07/10/2015 and ultrasound liver dated 04/25/2019 HISTORY: Elevated d-dimer. Shortness of breath x [address] DLP: 464.7 mGycm. Automated Exposure Control for Dose Reduction was Utilized. CONTRAST: CTA scan of the thorax is performed with IV Contrast, patient injected with 100 mL of Isovue 370, pul monary embolism protocol. MIP Images are created on CT scanner and reviewed. FINDINGS: LUNGS: The lungs are grossly clear with no focal consolidation 3 mm solid pulmonary nodule in the lef t lower lobe is seen on image 75. There is a 5 mm nodule seen in the right lower lobe on image 69. Th is is solid in nature. There is no pleural effusion or pneumothorax seen. The tracheobronchial tree is patent. MEDIASTINUM: There is satisfactory enhancement of the pulmonary artery and its branches, there is no CT evidence for pulmonary embolism. There are no greater than 1 cm hilar or mediastinal lymph nodes. Strand-like density in the superior anterior mediastinum likely relates to residual thymic tissue in a patient of this age. No cardiomegaly or pericardial effusion is seen. No significant coronary art asa calcifications are seen however technique does limit evaluation for coronary calcifications. OTHER: Surgical changes of the gastroesophageal junction with possible small residual hiatal hernia v ersus distention of the distal esophagus. Approximately 4.2 x 3.3 cm right hepatic lobe arterially en hancing mass is not definitively seen on prior exams and requires further evaluation with either thre e-phase follow-up CT abdomen pelvis or MRI liver mass protocol that could provide increased specifici ty. This mass measures up to 5.4 cm in craniocaudal dimension. There is background heterogeneity of t he liver, likely hepatic steatosis although other hepatocellular diseases possible. IMPRESSION: 1. No evidence of pulmonary embolism. No focal consolidation in the lungs. 2. Liver mass measuring up to 5.4 cm. Enhanced MRI liver would provide the best and specificity and c haracterization. Alternatively three-phase enhanced CT abdomen could be performed on a nonemergent [facility]. Background hepatic steatosis or less likely other hepatocellular diseases also seen. 3. Bilateral nonspecific sub-5 mm solid pulmonary nodules (one in each lower lobe).
[2019-05-28 14:25] VITALS: BP 131/74; PULSE 86
== END 2019-05-28 14:31 | disposition home or self-care (01) ==
LOC: SUPCPDRO 11:40 → EC 11:40
DX: R06.02 Shortness of breath (principal); R91.8 Other nonspecific abnormal finding of lung field; R16.0 Hepatomegaly, not elsewhere classified; I10 Essential (primary) hypertension; E66.9 Obesity, unspecified; Z68.32 Body mass index [BMI] 32.0-32.9, adult; Z79.899 Other long term (current) drug therapy
CPT/HCPCS: 99285; 36415; 93005; 85379; 80053; 84484; 85025; 87635; 71045; 71275; Q9967

== ENCOUNTER → 2019-06-18 | Outpatient (CLI) | payer BC ==
[2019-06-18 12:20] LABS: HCT 44.9 % (34.0-46.0); HGB 14.2 gm/dL (11.4-16.0); MCH 27.2 pg (25.0-35.0); MCHC 31.6 g/dL (31.0-37.0); MCV 86.2 fL (80.0-100.0); Mean Platelet Volume 8.9; Platelet Count 267 k/uL (150-450); RBC 5.21 m/uL (3.80-5.40); RDW 12.5 % (11.5-15.5); WBC 7.9 k/uL (3.8-10.6)
[2019-06-18 15:55] LABS: Albumin 4.2 g/dL (3.80-4.90); Albumin/Globulin Ratio 1.5 (1.60-3.17); Bilirubin, Conjugated 0.2 mg/dL (0.20-0.40); Bilirubin,Unconjugated 0.2 mg/dL; Globulin 2.8 g/dL (1.6-3.3); Total Bilirubin 0.4 mg/dL (0.3-1.2)
== END | disposition home or self-care (01) ==
LOC: LABWHC1 11:29
PROVIDERS: ATTEND Family Medicine
DX: R06.00 Dyspnea, unspecified (principal); R94.5 Abnormal results of liver function studies; N39.0 Urinary tract infection, site not specified; R93.2 Abnormal findings on diagnostic imaging of liver and biliary tract
CPT/HCPCS: 36415; 80076; 82103; 82104; 82977; 85027

== ENCOUNTER → 2019-06-19 | Outpatient (CLI) | payer BC ==
--- NOTE | 2019-06-19 17:34 | MR ---
EXAMINATION TYPE: MR liver wo/w con DATE OF EXAM: 06/19/2019 COMPARISON: CT abdomen and pelvis July 10, [address] 2012. Recent liver ultrasound April 24. Most recent CTA chest May 28, 2019. HISTORY: Weight loss, SOB, elevated bloodwork, abnormal CT/US CONTRAST: Standard multiplanar, multisequence MRI departmental protocol utilizing 9.5 mL intravenous Gadavist g adolinium contrast. Imaging of the abdomen focusing on the liver is performed. FINDINGS: Liver: Liver size stable and upper limits of normal. No significant signal dropout to suggest diffuse fatty infiltration. Corresponding to recent CTA chest study there is poorly visualized lesion right hepatic lobe posterior segment of slight T1 hyperintensity and T2 isointensity seen best dynamic post contrast series 901 image 376 measuring 4.5 x 4.3 cm. On this sequence there is slightly heterogeneou s enhancement of the lesion which becomes more isodense relative to remainder of liver on more delaye d phase images. There is nonenhancing central linear area or scar noted. There are additional multifo latrice ground areas of homogeneous enhancement throughout remainder of liver, too largest lesions inferi vivek right hepatic lobe measure up to 1.8 cm long axis. I identify roughly 10-12 distinct lesions, so me are subcentimeter in size. Largest lesions inferiorly have different imaging characteristics with more anterior lesion remaining slightly hyperdense to liver but diminishing and contrast-enhancement following draining hepatic veins and intensity. Of more concern the more posterior lesion shows centr al washout and rim enhancement for reference image 117 series 901 and 120 series 901. There is patent nondilated portal vein. There are patent hepatic veins draining into IVC. No surrounding ascites. Other: Lung bases are clear. Heterogeneously dense fibroglandular tissue incidentally noted in both b reasts. Prominent fundus of stomach again seen. The spleen, pancreas, and both adrenal glands remain within normal limits. No concerning renal mass or hydronephrosis. No suspicious small or large bowel dilatation. No abdominal ascites. No AAA. Visualized osseous structures show redemonstrates slight sc oliotic curvature. IMPRESSION: Area of concern 4.5 cm lesion on the recent CTA chest study has dynamic MRI imaging maria r cteristics suggesting FNH. There are at least 10-12 distinct smaller lesions on this study not as wel l seen on CT or ultrasound. Of most concern is the more inferior posterior right hepatic lobe 1.4 cm lesion that shows enhancement with washout suggestive of focal HCC. Advise surgical oncologic referra l.
== END | disposition home or self-care (01) ==
LOC: RADMRIMAIN 15:13
PROVIDERS: ATTEND Family Medicine
DX: R93.2 Abnormal findings on diagnostic imaging of liver and biliary tract (principal); R94.5 Abnormal results of liver function studies; R63.4 Abnormal weight loss
CPT/HCPCS: 74183; A9585

== ENCOUNTER → 2019-10-24 | Outpatient (CLI) | payer BC | END | disposition home or self-care (01) | LOC: LABWHC1 14:46 | PROVIDERS: ATTEND Family Medicine | DX: R07.0 Pain in throat (principal) | CPT/HCPCS: U0003; C9803 ==

== ENCOUNTER → 2019-10-30 | Outpatient (CLI) | payer BC ==
--- NOTE | 2019-10-31 12:20 | ECHOF ---
Referral Reason:R06.09 Dyspnea MEASUREMENTS -------- HEIGHT: 170.2 cm WEIGHT: 93.0 kg BP: RVIDd: 3.1 cm (< 3.3) IVSd: 1.2 cm (0.6 - 1.1) LVIDd: 3.4 cm (3.9 - 5.3) LVPWd: 1.3 cm (0.6 - 1.1) IVSs: 1.2 cm LVIDs: 2.4 cm LVPWs: 1.6 cm LA Diam: 2.4 cm (2.7 - 3.8) Ao Diam: 3.0 cm (2.0 - 3.7) AV Cusp: 2.1 cm (1.5 - 2.6) MV EXCURSION: 22.560 mm (> 18.000) MV EF SLOPE: 125 mm/s (70 - 150) EPSS: 0.5 cm MV E Jaciel: 0.79 m/s MV DecT: 163 ms MV A Jaciel: 0.73 m/s MV E/A Ratio: 1.07 RAP: 5.00 mmHg RVSP: 27.28 mmHg FINDINGS -------- This was a technically difficult study with suboptimal apical views. The left ventricular size is normal. There is mild concentric left ventricular hypertrophy. Overa ll left ventricular systolic function is low-normal with, an EF between 50 - 55 %. The right ventricle is mildly enlarged. The left atrium was not well visualized. The left atrial size is normal. The right atrium was not well visualized. xx ml of Lumason was utilized for enhancement of images. Interatrial and interventricular septum intact. The aortic valve is trileaflet and appears structurally normal. There is no evidence of aortic regu rgitation. There is no evidence of aortic stenosis. No mitral regurgitation. Mild tricuspid regurgitation present. There is no evidence of pulmonary hypertension. The right v entricular systolic pressure, as measured by Doppler, is 27.28mmHg. Trace/mild (physiologic) pulmonic regurgitation. The aortic root size is normal. IVC Not well visulized. There is no pericardial effusion. CONCLUSIONS -------- 1. The left ventricular size is normal. 2. There is mild concentric left ventricular hypertrophy. 3. Overall left ventricular systolic function is low-normal with, an EF between 50 - 55 %. 4. The right ventricle is mildly enlarged. 5. Mild tricuspid regurgitation present. 6. Trace/mild (physiologic) pulmonic regurgitation. LUMBER ESTIMATOR: Maylin Ibarra RDCS
== END | disposition home or self-care (01) ==
LOC: RADECHMAIN 14:56
PROVIDERS: ATTEND Internal Medicine Critical Care Medicine
DX: I07.1 Rheumatic tricuspid insufficiency (principal); I37.1 Nonrheumatic pulmonary valve insufficiency
CPT/HCPCS: 93306; Q9950

== ENCOUNTER → 2020-01-27 | Outpatient (CLI) | payer BC | END | disposition home or self-care (01) | LOC: LABWHC1 13:52 | PROVIDERS: ATTEND Internal Medicine Cardiovascular Disease | DX: R06.02 Shortness of breath (principal) | CPT/HCPCS: 36415; 83880 ==

== ENCOUNTER 2020-02-28 18:52 | Emergency (ER) | payer OTHER ==
[2020-02-28] MEDS ORDERED: DIAZEPAM 5 MG/ML 2 ML INJ IM ONE (19:11)
[2020-02-28] MEDS ORDERED: MORPHINE SULFATE 4 MG/ML SYRINGE IM STA (19:11)
[2020-02-28] MEDS ORDERED: KETOROLAC 15 MG/ML 1 ML VIAL IM STA (19:11)
--- NOTE | 2020-02-28 19:16 | ED ---
Back Pain HPI - General Chief Complaint: Back Pain/Injury Stated Complaint: Back Pain Time Seen by Provider: 02/28/20 19:01 Source: patient Limitations: no limitations - History of Present Illness Initial Comments: 29 year-old female patient presents to the emergency department for evaluation of left lower back pain. Pain occasionally radiates down the left leg. States she was bending forward last night fixing her boot when the pain started. States that it has been constant since onset. He has numbness, tingling, or weakness to the lower extremity is. Denies saddle anesthesia or loss of bowel or bladder control. States the pain was radiating down the front of her left thigh on the way here but that was the first time that had happened. 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 Pain worsens with movement. Denies any fever or chills. Denies any other injuries. Denies any chance of . Patient denies any recent rash, fever, chills, cough, shortness of breath, chest pain, abdominal pain, nausea, vomiting, diarrhea, constipation, dizziness, hematuria, dysuria, urinary urgency, urinary frequency, headache, visual changes, or any other complaints. - Related Data Home Medications Medication Instructions Recorded Confirmed Biotin 10,000 mcg PO HS 02/28/20 02/28/20 Ibuprofen 800 mg PO Q8H PRN 02/28/20 02/28/20 L.acidoph,Paracasei, B.lactis 1 cap PO HS 02/28/20 02/28/20 [Probiotic] Losartan Potassium 100 mg PO HS 02/28/20 02/28/20 Multivitamins, Thera [Multivitamin 1 tab PO HS 02/28/20 02/28/20 (formulary)] Previous Rx's Medication Instructions Recorded Acetaminophen-Codeine 300-30mg 1 tab PO Q6H PRN #12 tablet 02/28/20 [Tylenol #3] Cyclobenzaprine [Flexeril] 10 mg PO TID #15 tab 02/28/20 Allergies Allergy/AdvReac Type Severity Reaction Status Date / Time No Known Allergies Allergy Verified 02/28/20 20:51 Review of Systems ROS Statement: Those systems with pertinent positive or pertinent negative responses have been documented in the HPI. ROS Other: All systems not noted in ROS Statement are negative. Past Medical History Past Medical History: GERD/Reflux Additional Past Medical History / Comment(s): hx migraines, hiatal hernia, 02-20-15 lap ramsey fundoplication History of Any Multi-Drug Resistant Organisms: None Reported Past Surgical History: Cholecystectomy Additional Past Surgical History / Comment(s): COLONOSCOPY and EGD, lap. anayeli in 2014, 02-20-15 lap ramsey fundoplication Past Anesthesia/Blood Transfusion Reactions: No Reported Reaction Past Psychological History: No Psychological Hx Reported Smoking Status: Never smoker Past Alcohol Use History: None Reported Past Drug Use History: None Reported - Past Family History Mother Family Medical History: No Reported History General Exam Limitations: no limitations General appearance: alert, in no apparent distress, other (This is a well- developed, well-nourished adult female patient in mild distress related to pain. Vital signs upon presentation are temperature 98.1F, pulse 88, respirations 18, blood pressure 124/80, pulse ox 100% on room air.) Eye exam: Present: normal appearance, PERRL, EOMI. Absent: scleral icterus, conjunctival injection, periorbital swelling ENT exam: Present: normal exam, normal oropharynx, mucous membranes moist Respiratory exam: Present: normal lung sounds bilaterally. Absent: respiratory distress, wheezes, rales, rhonchi, stridor Cardiovascular Exam: Present: regular rate, normal rhythm, normal heart sounds. Absent: systolic murmur, diastolic murmur, rubs, gallop, clicks GI/Abdominal exam: Present: soft, normal bowel sounds. Absent: distended, tenderness, guarding, rebound, rigid Extremities exam: Present: normal inspection, full ROM, normal capillary refill, other (Skin pink, warm, dry. Cap refills less than 3 seconds. Pedal pulses 2+). Absent: tenderness, pedal edema, joint swelling, calf tenderness Back exam: Present: normal inspection, paraspinal tenderness (left lumbar). Absent: vertebral tenderness Neurological exam: Present: alert, oriented X3, CN II-XII intact Psychiatric exam: Present: normal affect, normal mood Skin exam: Present: warm, dry, intact, normal color. Absent: rash Course Vital Signs 02/28/20 02/28/20 02/28/20 18:55 19:54 20:00 Temperature 98.1 F 98.3 F Pulse Rate 88 83 82 Respiratory 18 22 Rate Blood Pressure 124/80 123/87 128/97 O2 Sat by Pulse 100 99 100 Oximetry 02/28/20 02/28/20 20:51 21:38 Temperature 98.2 F Pulse Rate 90 78 Respiratory 22 20 Rate Blood Pressure 130/91 142/76 O2 Sat by Pulse 97 99 Oximetry Medical Decision Making - Medical Decision Making 29 year-old female patient presents to the emergency department for evaluation of left lower back pain with occasional radiation down the front of her left leg. Physical examination does reveal some left paralumbar tenderness. Neurovascular is intact lower chemistries. She had no concerning symptoms for cauda equina. She was given multiple IM medications here. Upon reevaluation she is resting comfortably and states symptoms have improved. She does still have some pain. She'll be discharged up with her primary care physician and her neuro spinal specialist. Return parameters discussed in detail patient verbalizes understanding and agrees with this plan. - EKG Data -: EKG Interpreted by Me EKG Comments: EKG obtained at 1956 shows normal sinus rhythm with a sinus arrhythmia. Ventricular rate is 76, SD interval 124, QRS duration 90, QT 396, QTC 445. No evidence of ST elevation or depression. Disposition Clinical Impression: Acute low back pain Disposition: HOME SELF-CARE Condition: Good Instructions (If sedation given, give patient instructions): Acute Low Back Pain (ED) Additional Instructions: Continue medications for pain relief. Follow-up through primary care physician for recheck in 1-2 days. Return to the emergency department for any new, worsening, or concerning symptoms. Prescriptions: Cyclobenzaprine [Flexeril] 10 mg PO TID #15 tab Acetaminophen-Codeine 300-30mg [Tylenol #3] 1 tab PO Q6H PRN #12 tablet PRN Reason: Pain Is patient prescribed a controlled substance at d/c from ED?: No Referrals: Bety Xavier MD [Primary Care Provider] - 1-2 days Time of Disposition: 21:30
[2020-02-28] MEDS ORDERED: HYDROmorphone 1 MG/ML 1 ML SYRINGE IVP STA (19:53)
[2020-02-28] MEDS ORDERED: CYCLOBENZAPRINE 10MG STARTER 3 TAB BTL PO STA (21:29)
[2020-02-28] MEDS ORDERED: ACET/COD 300 MG/30 MG STARTER PACK 6 TAB BTL PO STA (21:29)
[2020-02-28 21:40] VITALS: BP 142/76; PULSE 78; RESP 20; TEMP 98.2
== END 2020-02-28 21:40 | disposition home or self-care (01) ==
LOC: EC 18:52
DX: M54.5 Low back pain (principal); Z79.899 Other long term (current) drug therapy
CPT/HCPCS: 93005; 99283; 96374; 96372 ×3; J2270; J3360; J1170; J1885

== ENCOUNTER → 2020-03-19 | Outpatient (CLI) | payer OTHER ==
[2020-03-20 02:39] LABS: African American GFR (CKD) 142.8 (60.0-200.0); Albumin 4.4 g/dL (3.80-4.90); Albumin/Globulin Ratio 1.91 (1.60-3.17); Anion Gap 10.3 mmol/L (4.00-12.00); BUN/Creat Ratio 23.33 Ratio (12.00-20.00); Calcium 8.6 mg/dL (8.7-10.3); Carbon Dioxide 24.7 mmol/L (21.6-31.8); Globulin 2.3 g/dL (1.6-3.3); Non-African American GFR(CKD) 123.2 (60.0-200.0); Potassium 3.9 mmol/L (3.5-5.5); Total Bilirubin 0.3 mg/dL (0.3-1.2); Total Protein 6.7 g/dL (6.2-8.2)
== END | disposition home or self-care (01) ==
LOC: LABWHC1 15:58
PROVIDERS: ATTEND Internal Medicine Gastroenterology
DX: R74.8 Abnormal levels of other serum enzymes (principal)
CPT/HCPCS: 36415; 80053

== ENCOUNTER 2020-12-01 19:05 | Emergency (ER) | payer OTHER ==
[2020-12-01 19:59] VITALS: BP 132/93; PULSE 83; RESP 19
[2020-12-01 20:57] VITALS: TEMP 97.9
--- NOTE | 2020-12-01 21:46 | ED ---
Female Urogenital HPI - General Chief complaint: Urogenital Stated complaint: unable to urinate Time Seen by Provider: 12/01/20 21:12 Source: patient Mode of arrival: ambulatory Limitations: no limitations - History of Present Illness Initial comments: 's patient is a 30-year-old woman who presents with complaint that she is having frequent urge to urinate and feels like she is not adequately emptying her bladder. Mother is that she has been having intermittent symptoms like this going back for a year. She had [place] urologist [place] the city and he had started her on medication which has not seemed to change her symptoms much. Things have been flaring up so she did see her primary physician who reportedly had checked her urine recently not finding any urinary tract infection. Onset/Timin -: year(s) Location: suprapubic Radiation: non-radiating Severity: mild Quality: other Consistency: constant Improves with: none Worsens with: none Patient : No - Related Data Home Medications Medication Instructions Recorded Confirmed L.acidoph,Paracasei, B.lactis 1 cap PO HS 02/28/20 12/01/20 [Probiotic] Losartan Potassium 100 mg PO HS 02/28/20 12/01/20 Multivitamins, Thera [Multivitamin 1 tab PO HS 02/28/20 12/01/20 (formulary)] Calcium Carbonate [Calcium] 600 mg PO HS 12/01/20 12/01/20 Cholecalciferol [Vitamin D3 (25 50 mcg PO HS 12/01/20 12/01/20 Mcg = 1000 Iu)] Folic Acid 0.8 mg PO HS 12/01/20 12/01/20 Oxybutynin Chloride [Oxybutynin 10 mg PO HS 12/01/20 12/01/20 Chloride ER] Zinc Gluconate [Zinc] 50 mg PO HS 12/01/20 12/01/20 Previous Rx's Medication Instructions Recorded Sulfamethox-Tmp 800-160Mg [Bactrim 1 each PO Q12HR #6 tab 12/01/20 Ds] Allergies Allergy/AdvReac Type Severity Reaction Status Date / Time No Known Allergies Allergy Verified 12/01/20 21:44 Review of Systems ROS Statement: Those systems with pertinent positive or pertinent negative responses have been documented in the HPI. ROS Other: All systems not noted in ROS Statement are negative. Constitutional: Denies: fever, chills Respiratory: Denies: cough, dyspnea Cardiovascular: Denies: chest pain, palpitations Gastrointestinal: Denies: abdominal pain, nausea, vomiting, diarrhea, cons tipation Genitourinary: Reports: urgency, frequency. Denies: dysuria, hematuria, discharge, abnormal menses Musculoskeletal: Denies: back pain Skin: Denies: rash Neurological: Denies: headache Past Medical History Past Medical History: GERD/Reflux Additional Past Medical History / Comment(s): hx migraines, hiatal hernia, 02-20-15 lap ramsey fundoplication History of Any Multi-Drug Resistant Organisms: None Reported Past Surgical History: Cholecystectomy Additional Past Surgical History / Comment(s): COLONOSCOPY and EGD, lap. anayeli in 2014, 02-20-15 lap ramsey fundoplication Past Anesthesia/Blood Transfusion Reactions: No Reported Reaction Past Psychological History: No Psychological Hx Reported Smoking Status: Never smoker Past Alcohol Use History: None Reported Past Drug Use History: None Reported - Past Family History Mother Family Medical History: No Reported History General Exam Limitations: no limitations General appearance: alert, in no apparent distress Head exam: Present: atraumatic, normocephalic Eye exam: Present: normal appearance. Absent: scleral icterus, conjunctival injection Respiratory exam: Present: normal lung sounds bilaterally. Absent: respiratory distress, wheezes, rales, rhonchi, stridor Cardiovascular Exam: Present: regular rate, normal rhythm, normal heart sounds. Absent: systolic murmur, diastolic murmur, rubs, gallop GI/Abdominal exam: Present: soft. Absent: distended, tenderness, guarding, rebound, rigid, mass Extremities exam: Present: normal inspection, normal capillary refill. Absent: pedal edema, calf tenderness Back exam: Present: normal inspection. Absent: CVA tenderness (R), CVA tenderness (L) Neurological exam: Present: alert Skin exam: Present: warm, dry, intact, normal color. Absent: rash Course Vital Signs 12/01/20 19:56 Temperature 97.9 F Pulse Rate 83 Respiratory 19 Rate Blood Pressure 132/93 O2 Sat by Pulse 99 Oximetry - Reevaluation(s) Reevaluation #1: 12/01/20 22:36 Patient's 30-year-old woman here for evaluation of recurrent went urge to urinate and sensation that she is having incomplete bladder emptying. After seeing the patient I had attempted to manage expectations stating that this is an emergency department and not specialized urology clinic and that we were unlikely define the exact etiology but would run some tests. The patient did become angry with this response and wanted to leave. The bladder scan does show proximally 60 mLs. The urinalysis does show some white cells and leukocyte esterase, the patient is given course of Bactrim and then she stated she was leaving without full lab results. 12/01/20 22:38 Medical Decision Making - Lab Data Result diagrams: 12/01/20 21:35 12/01/20 21:35 Lab Results 12/01/20 12/01/20 12/01/20 Range/Units 21:35 21:35 21:35 WBC 9.5 (3.8-10.6) k/uL RBC 4.69 (3.80-5.40) m/uL Hgb 13.3 (11.4-16.0) gm/dL Hct 39.5 (34.0-46.0) % MCV 84.3 (80.0-100.0) fL MCH 28.3 (25.0-35.0) pg MCHC 33.5 (31.0-37.0) g/dL RDW 12.3 (11.5-15.5) % Plt Count 214 (150-450) k/uL MPV 9.2 Neutrophils % 66 % Lymphocytes % 27 % Monocytes % 5 % Eosinophils % 1 % Basophils % 1 % Neutrophils # 6.2 (1.3-7.7) k/uL Lymphocytes # 2.5 (1.0-4.8) k/uL Monocytes # 0.4 (0-1.0) k/uL Eosinophils # 0.1 (0-0.7) k/uL Basophils # 0.0 (0-0.2) k/uL Sodium (137-145) mmol/L Potassium (3.5-5.1) mmol/L Chloride (98-107) mmol/L Carbon Dioxide (22-30) mmol/L Anion Gap mmol/L BUN (7-17) mg/dL Creatinine (0.52-1.04) mg/dL Est GFR (CKD-EPI)AfAm (>60 ml/min/1.73 sqM) Est GFR (CKD-EPI)NonAf (>60 ml/min/1.73 sqM) Glucose (74-99) mg/dL Calcium (8.4-10.2) mg/dL Total Bilirubin (0.2-1.3) mg/dL AST (14-36) U/L ALT (4-34) U/L Alkaline Phosphatase (38-126) U/L Total Protein (6.3-8.2) g/dL Albumin (3.5-5.0) g/dL Urine Color Yellow Urine Appearance Clear (Clear) Urine pH 6.5 (5.0-8.0) Ur Specific [place] 1.022 (1.001-1.035) Urine Protein Negative (Negative) Urine Glucose (UA) Negative (Negative) Urine Ketones Negative (Negative) Urine Blood Small H (Negative) Urine Nitrite Negative (Negative) Urine Bilirubin Negative (Negative) Urine Urobilinogen <2.0 (<2.0) mg/dL Ur Leukocyte Esterase Large H (Negative) Urine RBC 4 (0-5) /hpf Urine WBC 13 H (0-5) /hpf Ur Squamous Epith Cells 4 (0-4) /hpf Urine Bacteria Rare H (None) /hpf Urine Mucus Few H (None) /hpf Urine HCG, Qual Not Detected (Not Detectd) 12/01/20 Range/Units 21:35 WBC (3.8-10.6) k/uL RBC (3.80-5.40) m/uL Hgb (11.4-16.0) gm/dL Hct (34.0-46.0) % MCV (80.0-100.0) fL MCH (25.0-35.0) pg MCHC (31.0-37.0) g/dL RDW (11.5-15.5) % Plt Count (150-450) k/uL MPV Neutrophils % % Lymphocytes % % Monocytes % % Eosinophils % % Basophils % % Neutrophils # (1.3-7.7) k/uL Lymphocytes # (1.0-4.8) k/uL Monocytes # (0-1.0) k/uL Eosinophils # (0-0.7) k/uL Basophils # (0-0.2) k/uL Sodium 137 (137-145) mmol/L Potassium 4.1 (3.5-5.1) mmol/L Chloride 106 (98-107) mmol/L Carbon Dioxide 23 (22-30) mmol/L Anion Gap 8 mmol/L BUN 15 (7-17) mg/dL Creatinine 0.64 (0.52-1.04) mg/dL Est GFR (CKD-EPI)AfAm >90 (>60 ml/min/1.73 sqM) Est GFR (CKD-EPI)NonAf >90 (>60 ml/min/1.73 sqM) Glucose 96 (74-99) mg/dL Calcium 8.9 (8.4-10.2) mg/dL Total Bilirubin 0.4 (0.2-1.3) mg/dL AST 21 (14-36) U/L ALT 14 (4-34) U/L Alkaline Phosphatase 81 (38-126) U/L Total Protein 7.0 (6.3-8.2) g/dL Albumin 4.0 (3.5-5.0) g/dL Urine Color Urine Appearance (Clear) Urine pH (5.0-8.0) Ur Specific [place] (1.001-1.035) Urine Protein (Negative) Urine Glucose (UA) (Negative) Urine Ketones (Negative) Urine Blood (Negative) Urine Nitrite (Negative) Urine Bilirubin (Negative) Urine Urobilinogen (<2.0) mg/dL Ur Leukocyte Esterase (Negative) Urine RBC (0-5) /hpf Urine WBC (0-5) /hpf Ur Squamous Epith Cells (0-4) /hpf Urine Bacteria (None) /hpf Urine Mucus (None) /hpf Urine HCG, Qual (Not Detectd) Disposition Clinical Impression: Urinary tract infection Disposition: HOME SELF-CARE Condition: Good Instructions (If sedation given, give patient instructions): Urinary Tract Infection in Women (ED) Prescriptions: Sulfamethox-Tmp 800-160Mg [Bactrim Ds] 1 each PO Q12HR #6 tab Is patient prescribed a controlled substance at d/c from ED?: No Referrals: Bety Xavier MD [Primary Care Provider] - 1-2 days
[2020-12-01 21:52] LABS: Basophils % (A) 1 %; Eosinophils # (A) 0.1 k/uL (0-0.7); Eosinophils % (A) 1 %; HCT 39.5 % (34.0-46.0); HGB 13.3 gm/dL (11.4-16.0); Lymphocytes # (A) 2.5 k/uL (1.0-4.8); Lymphocytes % (A) 27 %; MCH 28.3 pg (25.0-35.0); MCHC 33.5 g/dL (31.0-37.0); MCV 84.3 fL (80.0-100.0); Mean Platelet Volume 9.2; Monocytes # (A) 0.4 k/uL (0-1.0); Monocytes % (A) 5 %; Neutrophils # (A) 6.2 k/uL (1.3-7.7); Neutrophils % (A) 66 %; Platelet Count 214 k/uL (150-450); RBC 4.69 m/uL (3.80-5.40); RDW 12.3 % (11.5-15.5); WBC 9.5 k/uL (3.8-10.6)
[2020-12-01 21:56] LABS: Appearance,Urine Clear (Clear); Bacteria,Urine Rare /hpf; Bilirubin,Urine Negative (Negative); Blood,Urine Small (Negative); Color,Urine Yellow; Glucose,Urine (UA) Negative (Negative); Ketones,Urine Negative (Negative); Leukocyte Esterase,Urine Large (Negative); Mucus,Urine Few /hpf; Nitrite,Urine Negative (Negative); PH, Urine 6.5 (5.0-8.0); Protein,Urine Negative (Negative); RBC,Urine 4 /hpf (0-5); Specific Gravity,Urine 1.022 (1.001-1.035); Squamous Epithelial Cell,Urine 4 /hpf (0-4); Urobilinogen,Urine <2.0 mg/dL (<2.0); WBC,Urine 13 /hpf (0-5)
[2020-12-01 22:00] LABS: Potassium 4.1 mmol/L (3.5-5.1)
[2020-12-01 22:01] LABS: ALT 14 U/L (4-34); AST 21 U/L (14-36); African American GFR (CKD) >90 (>60 ml/min/1.73 sqM); Alkaline Phosphatase 81 U/L (38-126); Anion Gap 8 mmol/L; Blood Urea Nitrogen 15 mg/dL (7-17); Calcium 8.9 mg/dL (8.4-10.2); Carbon Dioxide 23 mmol/L (22-30); Chloride 106 mmol/L (98-107); Glucose 96 mg/dL (74-99); Non-African American GFR(CKD) >90 (>60 ml/min/1.73 sqM); Sodium 137 mmol/L (137-145); Total Bilirubin 0.4 mg/dL (0.2-1.3)
[2020-12-01] MEDS ORDERED: SULFAMETHOX-TMP 800-160MG 1 EACH TAB PO STA (22:02)
== END 2020-12-01 22:00 | disposition home or self-care (01) ==
LOC: EC 19:05
DX: N39.0 Urinary tract infection, site not specified (principal); K21.9 Gastro-esophageal reflux disease without esophagitis; Z90.49 Acquired absence of other specified parts of digestive tract
CPT/HCPCS: 36415; 80053; 81001; 81025; 85025; 99283

== ENCOUNTER 2022-11-23 06:58 | Emergency (ER) | payer OTHER ==
[2022-11-23 07:38] VITALS: RESP 18; TEMP 98.5
--- NOTE | 2022-11-23 07:58 | ED ---
General Adult HPI - General Chief complaint: Urogenital Stated complaint: lower abdo pain/pressure Time Seen by Provider: 11/23/22 07:37 Source: patient, RN notes reviewed, old records reviewed Mode of arrival: ambulatory Limitations: no limitations - History of Present Illness Initial comments: 32-year-old female presenting with urinary frequency, urgency. Patient's symptoms have been progressive over the past 1 month prior significantly worse today. She reports some associated nausea. No vomiting. No flank pain. No fever. She denies vaginal discharge and states she currently has an IUD. She has an appointment with her PHARMAC[employer]IGILANCE SCIENTIST in one week. - Related Data Home Medications Medication Instructions Recorded Confirmed L.acidoph,Paracasei, B.lactis 1 cap PO HS 02/28/20 12/01/20 [Probiotic] Losartan Potassium 100 mg PO HS 02/28/20 12/01/20 Multivitamins, Thera [Multivitamin 1 tab PO HS 02/28/20 12/01/20 (formulary)] Calcium Carbonate [Calcium] 600 mg PO HS 12/01/20 12/01/20 Cholecalciferol [Vitamin D3 (25 50 mcg PO HS 12/01/20 12/01/20 Mcg = 1000 Iu)] Folic Acid 0.8 mg PO HS 12/01/20 12/01/20 Oxybutynin Chloride [Oxybutynin 10 mg PO HS 12/01/20 12/01/20 Chloride ER] Zinc Gluconate [Zinc] 50 mg PO HS 12/01/20 12/01/20 Previous Rx's Medication Instructions Recorded Sulfamethox-Tmp 800-160Mg [Bactrim 1 each PO Q12HR #6 tab 12/01/20 Ds] Ibuprofen [Motrin] 800 mg PO Q8H PRN #15 tab 03/20/22 Metoclopramide [Reglan] 10 mg PO TID PRN #15 tab 03/20/22 Sulfamethox-Tmp 800-160Mg [Bactrim 1 tab PO Q12HR 7 Days #14 tab 11/23/22 DS 800-160 mg] Allergies Allergy/AdvReac Type Severity Reaction Status Date / Time No Known Allergies Allergy Verified 11/23/22 07:35 Review of Systems ROS Statement: Those systems with pertinent positive or pertinent negative responses have been documented in the HPI. ROS Other: All systems not noted in ROS Statement are negative. Past Medical History Past Medical History: GERD/Reflux Additional Past Medical History / Comment(s): hx migraines, hiatal hernia, 02-20-15 lap ramsey fundoplication History of Any Multi-Drug Resistant Organisms: None Reported Past Surgical History: Cholecystectomy Additional Past Surgical History / Comment(s): COLONOSCOPY and EGD, lap. anayeli in 2014, 02-20-15 lap ramsey fundoplication Past Anesthesia/Blood Transfusion Reactions: No Reported Reaction Past Psychological History: No Psychological Hx Reported Smoking Status: Never smoker Past Alcohol Use History: None Reported Past Drug Use History: None Reported - Past Family History Mother Family Medical History: No Reported History General Exam Limitations: no limitations General appearance: alert, in no apparent distress Head exam: Present: atraumatic, normocephalic Eye exam: Present: normal appearance, PERRL ENT exam: Present: normal exam Neck exam: Present: normal inspection. Absent: tenderness, meningismus Respiratory exam: Present: normal lung sounds bilaterally. Absent: respiratory distress, wheezes Cardiovascular Exam: Present: regular rate, normal rhythm GI/Abdominal exam: Present: soft. Absent: distended, tenderness Extremities exam: Present: normal inspection, normal capillary refill. Absent: pedal edema Back exam: Absent: CVA tenderness (R), CVA tenderness (L) Neurological exam: Present: alert, oriented X3, CN II-XII intact Psychiatric exam: Present: normal affect, normal mood Skin exam: Present: warm, dry, intact. Absent: cyanosis, diaphoretic Course Vital Signs 11/23/22 07:32 Temperature 98.5 F Pulse Rate 80 Respiratory 18 Rate Blood Pressure 131/62 O2 Sat by Pulse 99 Oximetry Medical Decision Making - Medical Decision Making Was pt. sent in by a medical professional or institution (, PA, [employer], urgent care, hospital, or residential...) When possible be specific @ -No Did you speak to anyone other than the patient for history (EMS, parent, family, police, friend...)? What history was obtained from this source @ -No Did you review nursing and triage notes (agree or disagree)? Why? @ -I reviewed and agree with nursing and triage notes Were old charts reviewed (outside hosp., previous admission, EMS record, old EKG, old radiological studies, urgent care reports/EKG's, residential records)? Report findings @ -No old charts were reviewed Differential Diagnosis (chest pain, altered mental status, abdominal pain women, abdominal pain men, vaginal bleeding, weakness, fever, dyspnea, syncope, headache, dizziness, GI bleed, back pain, seizure, CVA, palpatations, mental health, musculoskeletal)? @ -[Cystitis, pyelonephritis EKG interpreted by me (3pts min.). @ -As above X-rays interpreted by me (1pt min.). @ -None done CT interpreted by me (1pt min.). @ -None done U/S interpreted by me (1pt. min.). @ -None done What testing was considered but not performed or refused? (CT, X-rays, U/S, labs)? Why? @ -None What meds were considered but not given or refused? Why? @ -None Did you discuss the management of the patient with other professionals (professionals i.e. DrAshley, PA, [employer], lab, RT, psych nurse, social media community manager, taper printed circuit layout, teacher, risk officer, case coordinator)? Give summary @ -No Was smoking cessation discussed for >3mins.? @ -No Was critical care preformed (if so, how long)? @ -No Were there social determinants of health that impacted care today? How? (Homelessness, low income, unemployed, alcoholism, drug addiction, transportation, low edu. Level, literacy, decrease access to med. care, nursing home, rehab)? @ -No Was there de-escalation of care discussed even if they declined (Discuss DNR or withdrawal of care, Hospice)? DNR status @ -No What co-morbidities impacted this encounter? (DM, HTN, Smoking, COPD, CAD, Cancer, CVA, ARF, Chemo, Hep., AIDS, mental health diagnosis, sleep apnea, morbid obesity)? @ -None Was patient admitted / discharged? Hospital course, mention meds given and route, prescriptions, significant lab abnormalities, going to OR and other pertinent info. @32-year-old female with urinary frequency, urgency and dysuria which has progressed over the past one month but was significantly worse today. Patient is afebrile well-appearing. No vomiting. No fever. No flank tenderness. Urinalysis shows greater than 182 white cells. Urine culture pending. Patient will be started on Bactrim, pending culture results. Return parameters were discussed. Undiagnosed new problem with uncertain prognosis? @ -No Drug Therapy requiring intensive monitoring for toxicity (Heparin, Nitro, Insulin, Cardizem)? @ -No Were any procedures done? @ -No Diagnosis/symptom? @ -[UTI Acute, or Chronic, or Acute on Chronic? @ -Acute Uncomplicated (without systemic symptoms) or Complicated (systemic symptoms)? @ -default Side effects of treatment? @ -No Exacerbation, Progression, or Severe Exacerbation? @ -No Poses a threat to life or bodily function? How? (Chest pain, [place], [place], pneumonia, PE, COPD, DKA, ARF, appy, cholecystitis, CVA, Diverticulitis, Homicidal, Suicidal, threat to staff... and all critical care pts) @ -Low risk at this time - Lab Data Lab Results 11/23/22 11/23/22 Range/Units 08:08 08:08 Urine Color Light Yellow Urine Appearance Cloudy H (Clear) Urine pH 6.0 (5.0-8.0) Ur Specific [place] 1.018 (1.001-1.035) Urine Protein 1+ H (Negative) Urine Glucose (UA) Negative (Negative) Urine Ketones Negative (Negative) Urine Blood Moderate H (Negative) Urine Nitrite Negative (Negative) Urine Bilirubin Negative (Negative) Urine Urobilinogen <2.0 (<2.0) mg/dL Ur Leukocyte Esterase Large H (Negative) Urine RBC 59 H (0-5) /hpf Urine WBC >182 H (0-5) /hpf Urine WBC Clumps Few H (None) /hpf Ur Squamous Epith Cells 1 (0-4) /hpf Urine Mucus Rare H (None) /hpf Urine HCG, Qual Not Detected (Not Detectd) Disposition Clinical Impression: Cystitis, Urinary tract infection Disposition: HOME SELF-CARE Condition: Good Instructions (If sedation given, give patient instructions): Urinary Tract Infection in Women (ED) Prescriptions: Sulfamethox-Tmp 800-160Mg [Bactrim DS 800-160 mg] 1 tab PO Q12HR 7 Days #14 tab Is patient prescribed a controlled substance at d/c from ED?: No Referrals: Bety Xavier MD [Primary Care Provider] - 1-2 days Time of Disposition: 08:44
[2022-11-23 08:26] LABS: Appearance,Urine Cloudy (Clear); Bilirubin,Urine Negative (Negative); Blood,Urine Moderate (Negative); Color,Urine Light Yellow; Glucose,Urine (UA) Negative (Negative); Ketones,Urine Negative (Negative); Leukocyte Esterase,Urine Large (Negative); Mucus,Urine Rare /hpf; Nitrite,Urine Negative (Negative); Protein,Urine 1+ (Negative); RBC,Urine 59 /hpf (0-5); Specific Gravity,Urine 1.018 (1.001-1.035); Squamous Epithelial Cell,Urine 1 /hpf (0-4); Urobilinogen,Urine <2.0 mg/dL (<2.0); WBC,Urine >182 /hpf (0-5)
[2022-11-23] MEDS ORDERED: SULFAMETHOX-TMP 800-160MG 1 EACH TAB PO STA (08:41)
[2022-11-23 09:10] VITALS: BP 133/77; PULSE 70
== END 2022-11-23 09:10 | disposition home or self-care (01) ==
LOC: EC 06:58
DX: N30.90 Cystitis, unspecified without hematuria (principal); B97.0 Adenovirus as the cause of diseases classified elsewhere
CPT/HCPCS: 81001; 81025; 87077; 87086; 87186; 99283; 99284

== ENCOUNTER → 2023-08-05 | Outpatient (CLI) | payer BC ==
[2023-08-05 23:12] LABS: Basophils # (A) 0.07 X 10*3/uL (0.00-0.10); Basophils % (A) 0.7 %; Eosinophils # (A) 0.16 X 10*3/uL (0.04-0.35); Eosinophils % (A) 1.6 %; HCT 43.7 % (37.2-46.3); HGB 14.2 g/dL (12.0-15.0); Lymphocytes % (A) 28.9 %; MCH 28.6 pg (27.0-32.0); MCHC 32.5 g/dL (32.0-37.0); MCV 88.1 FL (80.0-97.0); Mean Platelet Volume 11.6 FL (9.5-12.2); Monocytes # (A) 0.57 X 10*3/uL (0.20-1.00); Monocytes % (A) 5.7 %; NRBC Per 100 WBC 0 X 10*3/uL (0.00-0.01); Neutrophils # (A) 6.24 X 10*3/uL (1.80-7.70); Neutrophils % (A) 62.3 %; Platelet Count 273 X 10*3/uL (140-440); RBC 4.96 X 10*6/uL (4.10-5.20); RDW 12.4 % (11.5-14.5); WBC 10.02 X 10*3/uL (4.50-10.00)
[2023-08-05 23:22] LABS: Erythrocyte Sedimentation Rate 10 mm/Hr (0-20)
[2023-08-06 10:36] LABS: ALT 17 U/L (8-44); AST 16 U/L (13-35); Albumin 4.1 g/dL (3.8-4.9); Albumin/Globulin Ratio 1.71 Ratio (1.60-3.17); Alkaline Phosphatase 97 U/L (41-126); Blood Urea Nitrogen 7.5 mg/dL (9.0-27.0); Calcium 9.2 mg/dL (8.7-10.3); Carbon Dioxide 22.3 mmol/L (21.6-31.8); Chloride 103 mmol/L (96-109); Globulin 2.4 g/dL (1.6-3.3); Glucose 87 mg/dL (70-110); Potassium 4.2 mmol/L (3.5-5.5); Rheumatoid Factor, Qnt <15 IU/mL (0-15); Sodium 138 mmol/L (135-145); Total Bilirubin 0.6 mg/dL (0.3-1.2); Total Protein 6.5 g/dL (6.2-8.2)
[2023-08-07 14:49] LABS: Cyclic Citrull Pep IgG Unit <1.5 U/mL (<=3.9); Cyclic Citrullinated Pep IgG Negative
== END | disposition home or self-care (01) ==
LOC: LABWHC1 09:50
PROVIDERS: ATTEND Family Medicine
DX: Q44.6 Cystic disease of liver (principal); F41.9 Anxiety disorder, unspecified; F33.1 Major depressive disorder, recurrent, moderate; R76.0 Raised antibody titer
CPT/HCPCS: 36415; 80053; 85025; 85652; 86038; 86140; 86200; 86431